=== PATIENT | male | born 1955 | race Caucasian/White ===

== ENCOUNTER 2016-05-11 15:45 | Emergency (ER) | payer BC ==
[~2016-05-11] VITALS: Ht 182.9 cm; Wt 102.3 kg
[~2016-05-11 15:45] MED LIST: CHOLESTEROL MED; LIPITOR20 MG PO; LISINOPRIL40 MG PO; PEPCID 20MG TAB20 MG PO; PHENERGAN 25 TA25 MG PO; PRILOSEC 20MG20 MG PO; SIMVASTATIN20 MG PO
[2016-05-11 15:49] VITALS: TEMP 97.6
[2016-05-11] MEDS ORDERED: COZAAR 25MG25 MG/TAB (15:57)
[2016-05-11] MEDS ORDERED: ASPIRIN E.C. 8181 MG PO (15:58)
[2016-05-11 16:10] LABS: BASO % 0.7 % (0.0-2.0); EOS # 0.2 (0.0-0.7); EOS % 2.6 % (0-4.0); GRAN # 3.6 (1.4-6.5); GRAN % 59.5 % (42.2-75.2); HEMATOCRIT 37.2 % (42.0-52.0); HEMOGLOBIN 12.5 g/dl (13.5-18.0); LYMPH # 1.7 (1.2-3.4); LYMPH % 27.4 % (20.0-51.0); MEAN CELL VOLUME 87 fl (80.0-100.0); MEAN CORPUSCULAR HEMOGLOBIN 29 pg (27.0-31.0); MEAN CORPUSCULAR HGB CONC 34 g/dl (33.0-37.0); MEAN PLATELET VOLUME 9.8 fl (7.4-10.4); MONO # 0.6 (0.1-0.6); MONO % 9.6 % (1.7-9.3); PLATELET COUNT 239 K/mm3 (130-400); REDCELL DISTRIBUTION WIDTH-CV 14.3 % (11.5-14.5); WHITE BLOOD COUNT 6.1 K/mm3 (4.8-10.8)
[2016-05-11 16:20] LABS: INR 1.2 (0.8-3.0)
[2016-05-11 16:23] LABS: ADJUSTED CALCIUM 9.4 mg/dL (8.4-10.2); ALANINE AMINOTRANSFERASE 38 U/L (21-72); ALKALINE PHOSPHATASE 81 U/L (50-136); ANION GAP 11 mmol/L (7-16); BILIRUBIN,TOTAL 0.6 mg/dL (0.0-1.0); BLOOD UREA NITROGEN 20 mg/dL (9-20); CALCIUM 9.4 mg/dL (8.4-10.2); CARBON DIOXIDE 28 mmol/L (22-30); CHLORIDE 104 mmol/L (98-107); CREATININE, serum 1.07 mg/dL (0.66-1.25); GLUCOSE 97 mg/dL (74-106); PARTIAL THROMBOPLASTIN TIME 40.8 SECONDS (26.0-37.0); POTASSIUM 3.5 mmol/L (3.4-5.0); SODIUM 143 mmol/L (137-145); TOTAL PROTEIN 7.2 gm/dL (6.4-8.2)
[2016-05-11 16:34] LABS: TROPONIN-I < 0.012 ng/mL (0.000-0.034)
[2016-05-11 18:32] VITALS: BP 124/86; PULSE 76
== END 2016-05-11 18:33 | disposition home or self-care (01) ==
LOC: COL.ER 15:45
PROVIDERS: Family Medicine
DX: R07.9 Chest pain, unspecified (principal); I10 Essential (primary) hypertension; E78.5 Hyperlipidemia, unspecified